=== PATIENT | male | born 1985 | race Caucasian/White ===

== ENCOUNTER 2016-11-09 18:18 | Emergency (ER) | payer OTHER ==
[~2016-11-09] VITALS: Ht 180.3 cm; Wt 83.8 kg
[2016-11-09 18:30] VITALS: BP 130/98; PULSE 95; RESP 16; TEMP 98.4; O2SAT 96
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
[2016-11-09] MEDS ORDERED: MAGICADU2 SWISH-SWAL (19:36)
[2016-11-09] MEDS ORDERED: LORA24TA PO (19:36)
[2016-11-09] MEDS ORDERED: FLUT50SP EACH NARE (19:36)
== END 2016-11-09 19:44 | disposition home or self-care (01) ==
LOC: PHEFT 18:18
DX: J02.9 Acute pharyngitis, unspecified (principal); R05 Cough
CPT/HCPCS: 87081; 87804; 87880; 99283